=== PATIENT | female | born 1930 | race Caucasian/White ===

== ENCOUNTER 2017-03-08 18:57 | Observation (INO) ==
[2017-03-09 10:11] VITALS: BP 116/69
== END 2017-03-09 14:37 | disposition home health service (06) ==
LOC: DIRADM → 3N 18:57
PROVIDERS: ADMIT Internal Medicine; ATTEND Internal Medicine

== ENCOUNTER 2019-01-29 12:26 | Inpatient (IN) ==
[2019-01-29] MEDS ORDERED: TYLENOL PO PRN (14:58)
[2019-01-29] MEDS ORDERED: NS 1,000 ML IV SCH (14:58)
[2019-01-29] MEDS ORDERED: ZOFRAN IV PRN (14:58)
[2019-01-29 15:43] LABS: HEMATOCRIT 32.1 % (37.0-47.0); HEMOGLOBIN 11.1 g/dL (12.0-16.0); MCH 34.7 PG (27-31); MCHC 34.6 g/dL (33-37); MCV 100.3 FL (81-99); MPV 9.6 FL (7.4-10.4); RBC 3.2 XMIL (4.2-5.4); RDW 12.4 % (11.5-14.5); WBC 6.73 X1000 (4.8-10.8)
[2019-01-29] MEDS: TYLENOL PO PRN (15:56)
[2019-01-29 15:57] LABS: CALCIUM 9.1 mg/dL (8.8-10.2); CREATININE 0.9 mg/dL (0.5-0.9)
--- NOTE | 2019-01-29 17:01 | Diag Imaging Result Doc PS360 ---
EXAM: CHEST-PORTABLE HISTORY: copd TECHNIQUE: Chest single view COMPARISON: 01/23/2019 FINDINGS: The lungs are well expanded. The heart is mildly prominent. Sternal wires are present. The vessels are not distended. There are no infiltrates. No effusion identified. IMPRESSION: Mildly prominent heart. Electronically signed by Hans Guajardo 01/29/2019 4:59 PM
--- NOTE | 2019-01-29 17:04 | Diag Imaging Result Doc PS360 ---
EXAM: HIP 1 VIEW RIGHT HISTORY: hip pain TECHNIQUE: Right hip, single view COMPARISON: None. FINDINGS: No fracture. No dislocation. No other bony abnormality. IMPRESSION: Negative exam. Electronically signed by Hans Guajardo 01/29/2019 5:02 PM
--- NOTE | 2019-01-29 19:20 | Diag Imaging Result Doc PS360 ---
EXAM: CT HEAD W/WO CONTRAST HISTORY: HEADACHE CONCUSSION TECHNIQUE: CT head with and without intravenous contrast COMPARISON: 12/20/2018 FINDINGS: No parenchymal hemorrhage. No epidural or subdural hematoma. No subarachnoid hemorrhage. Right parietal calcification is unchanged. There are chronic microvascular ischemic changes. Small area of encephalomalacia in the anterior left parietal lobe. No enhancing lesion on the postcontrast images. No sinus opacification. IMPRESSION: No interval change. This exam was performed using automated exposure control, adjustment of mA or kV according to patient size, and/or use of iterative reconstruction technique. Electronically signed by Hans Guajardo 01/29/2019 7:18 PM
[2019-01-29] MEDS: SYMBICORT 160/4.5 MICROGM INHALER INH SCH (19:30)
[2019-01-29] MEDS: CITRACAL + D PO SCH (21:07)
[2019-01-29] MEDS: LOVENOX SUBQ SCH (21:07)
[2019-01-29] MEDS: NON-FORMULARY BULK MED BOTH EYES SCH (21:07)
[2019-01-30 00:29] LABS: URINE SOURCE CLEAN CATCH
[2019-01-30 00:31] LABS: BILIRUBIN URINE NEGATIVE (NEGATIVE); BLOOD URINE NEGATIVE (NEGATIVE); COLOR YELLOW; GLUCOSE URINE NEGATIVE (NEGATIVE); KETONE URINE NEGATIVE (NEGATIVE); LEUKOCYTES URINE NEGATIVE (NEGATIVE); NITRITE URINE NEGATIVE (NEGATIVE); PROTEIN URINE NEGATIVE (NEGATIVE); SP GRAVITY URINE 1.013; TURBIDITY URINE CLEAR (CLEAR); UROBILINOGEN URINE NORMAL (NORMAL)
[2019-01-30 00:34] LABS: UR EPITHELIAL CELLS <10 /HPF (<10); URINE BACTERIA NEGATIVE /HPF; URINE RBC <10 /HPF (<10); URINE WBC <10 /HPF (<10)
[2019-01-30] MEDS: TYLENOL PO PRN (07:11)
[2019-01-30] MEDS: SYMBICORT 160/4.5 MICROGM INHALER INH SCH ×2 (08:16→19:42)
--- NOTE | 2019-01-30 09:08 | PROGRESS NOTE ---
DATE: 01/30/2019 SUBJECTIVE: Ms. Stahl is sitting up in bed and eating breakfast. She appears to be resting comfortably. She is awake and easily arousable. She answers questions appropriately. She continues with right hip and right rib pain. X-rays of the ribs demonstrated no obvious fractures. No fractures were noted of the right hip. She was orthostatic on admission to the hospital. We held her Coreg and her blood pressure looks much better. OBJECTIVE: Vitals: She remains in normal sinus rhythm. Heart rate is in the range of 69 to 80. She is afebrile. Pulse 80. Respirations 18, blood pressure 126/62. CARDIOVASCULAR: Regular rate and rhythm. Lungs: Clear. Abdomen: Soft, nontender, with active bowel sounds. ASSESSMENT AND PLAN: 1. Frequent falls. She has fallen multiple times over the past several weeks. I suspect the etiology of her falls was multifactorial. She does have a peripheral neuropathy. She was orthostatic. 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 She does use a walker most of the time at home. She has had increasing difficulty ambulating at home. We will continue Ultram 50 mg q.6 hours p.r.n. pain. We have consulted Physical Therapy for evaluation, range of motion exercises and weightbearing exercises. I believe that she will benefit from short-term rehab in the hopes of building up her strength so that she would be strong enough to move into assisted living. We certainly feel that given her underlying mild cognitive impairment, her age and overall health, that it is no longer safe for her to live at home by herself. 2. Paroxysmal atrial fibrillation. She remains in normal sinus rhythm. We will continue Plavix 75 mg daily. We will monitor her heart rate off the Coreg. 3. Ischemic heart disease. She had a recent [id number] elevation myocardial infarction. We will continue Plavix, Ranexa. 4. COPD. She is breathing comfortably. We will continue Symbicort 160/4.5 two puffs b.i.d. and DuoNeb nebulizer treatments. cc: Esteban Posey MD
[2019-01-30] MEDS: ASPIRIN PO SCH (09:11)
[2019-01-30] MEDS: CITRACAL + D PO SCH ×2 (09:11→21:07)
[2019-01-30] MEDS: CELEXA PO SCH (09:11)
[2019-01-30] MEDS: PLAVIX PO SCH (09:11)
[2019-01-30] MEDS: RANEXA PO SCH ×2 (09:13→21:07)
[2019-01-30] MEDS: CYMBALTA PO SCH (09:14)
[2019-01-30] MEDS: SYNTHROID PO SCH (10:04)
[2019-01-30] MEDS ORDERED: BROVANA NEB ONE (19:10)
[2019-01-30] MEDS: BROVANA NEB INH SCH (19:42)
[2019-01-30] MEDS: LOVENOX SUBQ SCH (21:07)
[2019-01-30] MEDS: NON-FORMULARY BULK MED BOTH EYES SCH ×2 (22:42→22:44)
[2019-01-31] MEDS: SYNTHROID PO SCH (06:18)
[2019-01-31] MEDS: PROTONIX PO SCH (06:18)
[2019-01-31] MEDS ORDERED: BROVANA NEB ONE (07:21)
[2019-01-31] MEDS: BROVANA NEB INH SCH (07:23)
[2019-01-31] MEDS: SYMBICORT 160/4.5 MICROGM INHALER INH SCH ×2 (07:23→19:15)
[2019-01-31] MEDS: ASPIRIN PO SCH (09:10)
[2019-01-31] MEDS: CITRACAL + D PO SCH (09:10)
[2019-01-31] MEDS: CELEXA PO SCH (09:10)
[2019-01-31] MEDS: CYMBALTA PO SCH (09:10)
[2019-01-31] MEDS: RANEXA PO SCH ×2 (09:11→20:03)
[2019-01-31] MEDS: PLAVIX PO SCH (09:11)
[2019-01-31] MEDS: ULTRAM PO PRN ×2 (09:14→20:03)
--- NOTE | 2019-01-31 13:44 | PROGRESS NOTE ---
DATE: 01/31/2019 SUBJECTIVE: Ms. Stahl is sitting up in a chair, eating breakfast. She is breathing comfortably. She remains in normal sinus rhythm. Her heart rate is in the 60s. The orthostatic blood pressures have resolved off Coreg. She is making slow progress with physical therapy. She was able to walk approximately 90 feet with assistance. OBJECTIVE: She is afebrile, pulse 61, respirations 14, BP 131/52 sitting and 144/49 standing, pulse 65. CV: Regular rate and rhythm. Lungs: Clear. Abdomen: Soft, nontender, with active bowel sounds. ASSESSMENT AND PLAN: 1. Orthostatic hypotension. The orthostatic hypotension has resolved. We will continue her off Coreg. She was given 1 L of fluid. 2. Paroxysmal atrial fibrillation. She remains in normal sinus rhythm. Heart rate is stable. We will continue Plavix 75 mg daily. 3. Ischemic heart disease. Clinically, she remains asymptomatic. We will continue Plavix and Ranexa. Statins are contraindicated at her young age. 4. Frequent falls. I suspect that the etiology of her frequent falls is multifactorial including cerebellar ataxia and peripheral neuropathy as well as orthostatic hypotension. She is making slow progress with physical therapy. We are going to continue physical therapy and are awaiting a short term rehab placement. We are hopeful that a bed will be available at [facility] tomorrow. cc: Esteban Posey MD
[2019-01-31] MEDS: LOVENOX SUBQ SCH (20:03)
[2019-01-31] MEDS: TYLENOL PO PRN (20:05)
[2019-01-31] MEDS: NON-FORMULARY BULK MED BOTH EYES SCH (20:35)
[2019-02-01] MEDS: ULTRAM PO PRN ×2 (06:44→12:41)
[2019-02-01] MEDS: SYNTHROID PO SCH (06:45)
[2019-02-01] MEDS: PROTONIX PO SCH (06:45)
[2019-02-01] MEDS: RANEXA PO SCH (08:46)
[2019-02-01] MEDS: ASPIRIN PO SCH (08:46)
[2019-02-01] MEDS: CELEXA PO SCH (08:46)
[2019-02-01] MEDS: CYMBALTA PO SCH (08:46)
[2019-02-01] MEDS: PLAVIX PO SCH (08:46)
[2019-02-01] MEDS: SYMBICORT 160/4.5 MICROGM INHALER INH SCH (10:04)
[2019-02-01 11:27] VITALS: BP 144/69
--- NOTE | 2019-02-01 13:10 | DISCHARGE SUMMARY ---
ADMISSION DATE: 01/29/2019 DISCHARGE DATE: 02/01/2019 DISCHARGE DIAGNOSES: 1. Recurrent falls secondary to cerebellar ataxia, peripheral neuropathy. 2. Orthostatic hypotension. 3. Paroxysmal atrial fibrillation. 4. Ischemic heart disease. 5. Chronic obstructive pulmonary disease. 6. Depression. DISCHARGE INSTRUCTIONS: 1. The patient will travel via private car to [facility] in order to undergo short-term rehab. 2. Activity as tolerated. 3. Healthy heart diet. DISCHARGE MEDICATIONS: Celexa 20 mg daily, Ranexa 1000 mg b.i.d., levothyroxine 100 mcg daily, Ultram 50 mg every 6 hours p.r.n., Lumigan 0.03% one drop to both eyes at bedtime, Caltrate 600 Plus D b.i.d., Plavix 75 mg daily, aspirin 81 mg daily, Symbicort 160/4.5 two puffs b.i.d., Brovana nebulized b.i.d., nitroglycerin 0.4 mg sublingually every 5 minutes p.r.n. shortness of breath and chest pain, hydrochlorothiazide 12.5 mg daily, Imdur 30 mg daily, pantoprazole 40 mg daily, duloxetine 60 mg daily. PHYSICAL EXAMINATION: General: This is an elderly, frail, 88-year-old, lady in no apparent distress. Vital Signs: She is afebrile. Vital signs are stable. CV: Regular rate and rhythm. Lungs: Clear. Abdomen: Soft, nontender, with active bowel sounds. HISTORY AND HOSPITAL COURSE: The patient was admitted to [facility] with recurrent falls. Her initial CT scan of the brain was unremarkable. It showed chronic white matter changes and cerebral atrophy. We felt that her recurrent falls were due to the cerebellar ataxia as well as the peripheral neuropathy. We also felt that the falls were exacerbated by her acute orthostatic hypotension. We held the Coreg, and bolused her with a liter of normal saline. Her orthostatics blood pressures normalized. Physical Therapy was consulted to see the patient and worked with the patient. She made slow but steady progress with physical therapy. She was able to walk 250 feet with the assistance of a walker at the time of discharge. She was not felt to be strong enough independently to return home safely, and arrangements were made to send her to [facility] in order to undergo short-term rehab. She is a high fall risk. She has mild cognitive impairment. I have had long discussions with her caregivers. I do not believe that it is safe for her to stay at home by herself. They are looking at visiting several assisted living facilities for her at the time of discharge from short-term rehab. Having reached maximum hospital benefit, the patient was discharged in stable condition. cc: Esteban Posey MD
== END 2019-02-01 14:39 | DRG 312 ==
LOC: DIRADM 12:26 → 3N 14:35
PROVIDERS: ADMIT Internal Medicine; ATTEND Internal Medicine
CPT/HCPCS: 70470; 71010; 71045; 73500; 73501; 80048; 81001; 85027; 94640; 94761; 97110; 97162; 97530; A9270; J1650; J7030; Q9967